=== PATIENT | male | born 1965 | race Caucasian/White ===

== ENCOUNTER 2018-04-04 10:14 | Emergency (ER) | payer BC ==
--- NOTE | 2018-04-04 12:48 | ED ---
Upper Extremity Pain - HPI Summary HPI Summary: Pt is a 53 y/o male who presents to the ED c/o RUE paresthesia. He states hes had the symptoms for 4 days and thinks he pinched a nerve. Pt reports constant discomfort of the upper portion of his RUE that radiates to his right upper back , right-sided neck, and now his right leg. Pt rates the pain as a 9/10 in severity, and isnt able to sleep due to the pain. The pain is made worse with movement. He also notes intermittent numbness and paresthesia of these regions. He denies his hand or fingers being involved. Pt denies any fever, chills, N/V, CP, or weakness. He has been taking Tylenol for his symptoms. - History of Current Complaint Chief Complaint: EDExtremityUpper Stated Complaint: GENERAL Hx Obtained From: Patient Mechanism Of Injury: Other - No injury Onset/Duration: Started Days Ago - 4, Still Present Timing: Constant - pain, Intermittent - numbness, tingling Severity Currently: Severe - 9/10 Pain Location: Arm Aggravating Factor(s): Movement Alleviating Factor(s): Nothing Associated Signs & Symptoms: Positive: Numbness/Tingling, Back Pain, Neck Pain. Negative: Weakness, Nausea, Vomiting - Allergies/Home Medications Allergies/Adverse Reactions: Allergies Allergy/AdvReac Type Severity Reaction Status Date / Time No Known Allergies Allergy Verified 04/04/18 10:28 Home Medications: Home Medications Aspirin 81 mg CHEW TAB* [Aspirin Low Dose TAB*] 81 mg PO DAILY 04/04/18 [ History Confirmed 04/04/18] PMH/Surg Hx/FS Hx/Imm Hx Endocrine/Hematology History: Denies: Hx Diabetes, Hx Thyroid Disease Cardiovascular History: Reports: Hx Angina Denies: Hx Hypertension, Hx Pacemaker/ICD Respiratory History: Denies: Hx Asthma, Hx Chronic Obstructive Pulmonary Disease (COPD) GI History: Denies: Hx Ulcer History: Denies: Hx Renal Disease Sensory History: Denies: Hx Hearing Aid Neurological History: Reports: Hx Migraine Psychiatric History: Reports: Hx Panic Disorder - SINCE THESE MIGRAINES STARTED Infectious Disease History: No Infectious Disease History: Denies: Hx Clostridium Difficile, Hx Hepatitis, Hx Human Immunodeficiency Virus (HIV), Hx of Known/Suspected MRSA, Hx Shingles, Hx Tuberculosis, Traveled Outside the [place] in Last 30 Days - Family History Known Family History: Positive: Cardiac Disease - CAD - Social History Alcohol Use: Rare Hx Substance Use: No Substance Use Type: Reports: None Hx Tobacco Use: Yes Smoking Status (MU): Former Smoker Type: Cigarettes Have You Smoked in the Last Year: No Review of Systems Negative: Fever, Chills Negative: Chest Pain Negative: Vomiting, Nausea Positive: Paresthesia, Numbness. Negative: Weakness All Other Systems Reviewed And Are Negative: Yes Physical Exam - Summary Physical Exam Summary: GENERAL: Patient is a well-developed and nourished M who is lying comfortable in the stretcher. Patient is not in any acute respiratory distress. HEAD AND FACE: Normocephalic EYES: PERRLA, EOMI x 2. EARS: Hearing grossly intact. MOUTH: Oropharynx within normal limits. NECK: Supple, trachea is midline, no adenopathy, no JVD, no carotid bruit. CHEST: Symmetric, no tenderness at palpation LUNGS: Clear to auscultation bilaterally. No wheezing or crackles. CVS: Regular rate and rhythm, S1 and S2 present, no murmurs or gallops appreciated. ABDOMEN: Soft, non-tender. Bowel sounds are normal. No abdominal abnormal pulsations. EXTREMITIES: Full ROM in all major joints, no edema, no cyanosis or clubbing. 5/ 5 motor function in BUE. NEURO: Alert and oriented x 3. No acute neurological deficits. Speech is normal and follows commands. Sensation intact BUE. SKIN: Dry and warm Triage Information Reviewed: Yes Vital Signs On Initial Exam: Initial Vitals Temp Pulse Resp BP Pulse Ox 99.4 F 93 20 102/83 98 04/04/18 10:25 04/04/18 10:25 04/04/18 10:25 04/04/18 10:25 04/04/18 10:25 Vital Signs Reviewed: Yes Diagnostics - Vital Signs Vital Signs Temp Pulse Resp BP Pulse Ox 04/04/18 10:25 99.4 F 93 20 102/83 98 - Laboratory Lab Statement: Any lab studies that have been ordered have been reviewed, and results considered in the medical decision making process. - Radiology Cervical Spine XR Radiology Interpretation Completed By: Radiologist Summary of Radiographic Findings: 1. OSTEOPENIA. 2. OSTEOARTHRITIS. 3. MILD DEGENERATIVE DISC DISEASE. ED physician reviewed radiology report. Course/Dx - Course Course Of Treatment: Pt is a 53 y/o male who presents to the ED c/o RUE paresthesia, numbness, and pain. A cervical spine XR was negative for acute diagnoses. Workup was unremarkable. Pt will be discharged with a final dx of cervical radiculopathy. I discussed results with patient and he reports feeling better. He is hemodynamically stable and safe for discharge. Strict return precautions given and he will otherwise follow up with his PCP. - Diagnoses Provider Diagnoses: Cervical radiculopathy Discharge - Sign-Out/Discharge Documenting (check all that apply): Patient Departure - Discharge Patient Received Moderate/Deep Sedation with Procedure: No - Discharge Plan Condition: Improved Disposition: HOME Prescriptions: Cyclobenzaprine TAB* [Flexeril 10 MG TAB*] 10 mg PO TID PRN #20 tab PRN Reason: Pain Ibuprofen TAB* [Motrin TAB* 800 MG] 800 mg PO Q6H #20 tab Patient Education Materials: Paresthesia (ED), Cervical Radiculopathy (ED) Forms: *Work Release Referrals: Poncho Martin MD [Medical Doctor] - Eldon Steiner MD [Primary Care Provider] - Additional Instructions: Follow up with your primary care physician in 1-3 days. RETURN TO THE EMERGENCY DEPARTMENT FOR CHANGING OR WORSENING SYMPTOMS. - Billing Disposition and Condition Condition: IMPROVED Disposition: Home - Attestation Statements Document Initiated by Magali: Yes Documenting Scribe: Yasmine Li Provider For Whom Magali is Documenting (Include Credential): Flores Collado MD Scribe Attestation: IYasmine, scribed for Flores Collado MD on 04/05/18 at 1817. Scribe Documentation Reviewed: Yes Provider Attestation: The documentation as recorded by the Yasmine carney accurately reflects the service I personally performed and the decisions made by me, Flores Collado MD Status of Scribe Document: Viewed
[2018-04-04] MEDS ORDERED: Diazepam TAB(*) 5 MG PO ONE (12:50)
[2018-04-04] MEDS ORDERED: Ketorolac INJ* 60 MG/2 ML VIAL IM ONE (12:50)
[2018-04-04 14:08] VITALS: BP 118/51
== END 2018-04-04 14:02 | disposition home or self-care (01) ==
LOC: ED 10:14
DX: M54.12 Radiculopathy, cervical region (principal); M47.812 Spondylosis without myelopathy or radiculopathy, cervical region; M85.88 Other specified disorders of bone density and structure, other site; Z79.82 Long term (current) use of aspirin; Z87.891 Personal history of nicotine dependence
CPT/HCPCS: 72040; 96372; 99282; A9270-GY; J1885

== ENCOUNTER 2018-04-08 08:25 | Emergency (ER) | payer BC ==
[2018-04-08 11:39] VITALS: BP 121/83
--- NOTE | 2018-04-08 12:31 | ED ---
Neck Pain - HPI Summary HPI Summary: Patient is a 53-year-old male who presents emergency department for worsening neck and right arm pain. Patient associated the ER several days ago for similar symptoms. At that time he had an x-ray which showed degenerative changes. Patient was prescribed Flexeril and ibuprofen which mildly helped. Patient states pain has increased and he is having paresthesias to his right upper arm. Denies weakness. Patient states symptoms have been going on altogether about 2 weeks. She denies initial injury. 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 Symptoms are mild in severity. Movement makes symptoms worse. Nothing makes symptoms better. - History of Current Complaint Chief Complaint: EDExtremityUpper Stated Complaint: ARM PAIN,SHOULDER PAIN Time Seen by Provider: 04/08/18 08:38 Hx Obtained From: Patient Pain Intensity: 2 Pain Scale Used: 0-10 Numeric - Allergies/Home Medications Allergies/Adverse Reactions: Allergies Allergy/AdvReac Type Severity Reaction Status Date / Time No Known Allergies Allergy Verified 04/04/18 10:28 PMH/Surg Hx/FS Hx/Imm Hx Previously Healthy: Yes Endocrine/Hematology History: Denies: Hx Diabetes, Hx Thyroid Disease Cardiovascular History: Reports: Hx Angina Denies: Hx Hypertension, Hx Pacemaker/ICD Respiratory History: Denies: Hx Asthma, Hx Chronic Obstructive Pulmonary Disease (COPD) GI History: Denies: Hx Ulcer History: Denies: Hx Renal Disease Sensory History: Denies: Hx Hearing Aid Neurological History: Reports: Hx Migraine Psychiatric History: Reports: Hx Panic Disorder - SINCE THESE MIGRAINES STARTED Infectious Disease History: No Infectious Disease History: Denies: Hx Clostridium Difficile, Hx Hepatitis, Hx Human Immunodeficiency Virus (HIV), Hx of Known/Suspected MRSA, Hx Shingles, Hx Tuberculosis, Traveled Outside the [place] in Last 30 Days - Family History Known Family History: Positive: Cardiac Disease - CAD - Social History Occupation: Employed Full-time Lives: With Family Alcohol Use: Rare Hx Substance Use: No Substance Use Type: Reports: None Hx Tobacco Use: Yes Smoking Status (MU): Former Smoker Type: Cigarettes Have You Smoked in the Last Year: No Review of Systems Constitutional: Negative Negative: Fever, Chills Cardiovascular: Negative Respiratory: Negative Positive: Other - neck pain and right upper arm pain. Skin: Negative Positive: Paresthesia - right upper arm pain. Negative: Numbness All Other Systems Reviewed And Are Negative: Yes Physical Exam Triage Information Reviewed: Yes Vital Signs On Initial Exam: Initial Vitals Temp Pulse Resp BP Pulse Ox 96.9 F 81 16 148/97 99 04/08/18 08:28 04/08/18 08:28 04/08/18 08:28 04/08/18 08:28 04/08/18 08:28 Vital Signs Reviewed: Yes Appearance: Positive: Well-Appearing - Pt. sitting on side of bed in NAD. Skin: Positive: Warm, Dry Head/Face: Positive: Normal Head/Face Inspection Eyes: Positive: Normal, EOMI Neck: Positive: Supple, Other: - No midline tenderness. Pain over right trapezius muscle. Musculoskeletal: Positive: Other - 5/5 strength in bilateral UEs. Mild decrease sensation to right upper arm. Normal radial pulses to UEs. Neurological: Positive: Normal, Alert, Oriented to Person Place, Time Psychiatric: Positive: Affect/Mood Appropriate Diagnostics - Vital Signs Vital Signs Temp Pulse Resp BP Pulse Ox 04/08/18 10:47 98 F 78 18 121/83 96 04/08/18 08:28 96.9 F 81 16 148/97 99 - Laboratory Lab Statement: Any lab studies that have been ordered have been reviewed, and results considered in the medical decision making process. Neck Course/Dx - Course Course Of Treatment: Pt. presenting for worsening neck and arm pain as well as tingling in right upper arm. He is afebrile. No UE weakness on exam. Given worsening sxs ct neck obtained for further evaluation. CT cerival spine per radiology: IMPRESSION: MILD TO MODERATE CERVICAL SPONDYLOSIS. IF THE PATIENT'S SYMPTOMS PERSIST. CONSIDER FOLLOW-UP MR IMAGING. Will put pt. on a course of prednisone and a few days of pain medication. DRY ROLLER reviewed and no red flags noted. Pt. to call PCP on Tuesday for a close f.u apt. May benefit from PT. Work excuse given. To return to ER if sxs change or worsen. - Diagnoses Differential Dx/HQI/PQRI: Positive: Arthritis, Sprain, Strain Provider Diagnoses: Cervical radiculopathy Discharge - Sign-Out/Discharge Documenting (check all that apply): Patient Departure Patient Received Moderate/Deep Sedation with Procedure: No - Discharge Plan Condition: Good Disposition: HOME Prescriptions: Hydrocodone/Acetaminophen [Hydrocodone-Acetamin 5-325 mg] 1 each PO Q6H #12 tablet MDD 4 methylPREDNISolone [Medrol Dosepak 4 MG*] 0 mg PO .SEE NICOLE INSTRUCTION #1 tab Patient Education Materials: Cervical Disc Herniation (ED), Cervical Radiculopathy (ED) Forms: *Work Release Referrals: Eldon Steiner MD [Primary Care Provider] - Additional Instructions: Call your PCP Tuesday to schedule a close follow up appointment Take medication as directed Apply warm compresses to neck Avoid heavy lifting Return to ER if symptoms change or worsen - Billing Disposition and Condition Condition: GOOD Disposition: Home
== END 2018-04-08 10:47 | disposition home or self-care (01) ==
LOC: ED 08:25
DX: M54.12 Radiculopathy, cervical region (principal); Z87.891 Personal history of nicotine dependence
CPT/HCPCS: 72125; 99282

== ENCOUNTER 2018-12-12 18:16 | Emergency (ER) | payer BC ==
[2018-12-12 19:11] LABS: ABS Eosinophils 0.1 10^3/ul (0-0.6); ABS Lymphocytes 2.2 10^3/ul (1.0-4.8); ABS Monocytes 0.7 10^3/ul (0-0.8); ABS Neutrophils 4.6 10^3/ul (1.5-7.7); Eosinophil % 0.9 %; Hematocrit 48 % (42-52); Lymphocyte % 28.9 %; Mean Corpuscular HGB Conc 34 g/dL (31-36); Mean Corpuscular Hemoglobin 30 pg (27-31); Mean Corpuscular Volume 89 fL (80-94); Mean Platelet Volume 8.4 fL (7.4-10.4); Platelet Count 261 10^3/uL (150-450); Red Blood Count 5.34 10^6 /uL (4.18-5.48); Red Cell Distribution Width 14 % (10-15); White Blood Count 7.5 10^3/uL (3.5-10.8)
[2018-12-12] MEDS ORDERED: NS 0.9% 1000 ML** 2,000 ML IV SCH (19:15)
[2018-12-12 19:28] LABS: Albumin 4.6 g/dL (3.2-5.2); Albumin/Globulin Ratio 1.6 (1-3); BUN/Creatinine Ratio 16.5 (8-20); C Reactive Protein 5.19 mg/L (<8.01); EGFR African American 97.2 (>60); EGFR Non-African American 80.4 (>60); Globulin 2.8 g/dL (2-4); Potassium 4.1 mmol/L (3.5-5.0); Total Bilirubin 0.6 mg/dL (0.2-1.0); Total Protein 7.4 g/dL (6.4-8.9)
[2018-12-12 20:08] LABS: INR 1.1 (0.82-1.09)
[2018-12-12 20:18] LABS: Magnesium 1.9 mg/dL (1.9-2.7)
[2018-12-12] MEDS ORDERED: NS 0.9% 1000 ML** 1,000 ML IV ONE ×2 (20:25→21:38)
--- NOTE | 2018-12-12 21:25 | ED ---
Complex/Multi-Sys Presentation - HPI Summary HPI Summary: Patient is a 53 y/o M presenting to [facility] with complaints of N/V/D, abdominal pain and fatigue. Sx onset around seven days ago, 12/05/18 and have been present daily after having eaten [place] food. Pt's was initially ill, but she is now without sxs, and the pt has continued with the N,V,D. The patient had onset of right-sided abdominal pain today, 12/12/18. Pt also notes bilat lower lateral rib pain which he attributes to muscle strain after coughing. Patient had been evaluated at [facility] urgent care and was sent to ED for further workup. He was noted to be orthostatic at [facility] with pulse increasing 30 points with standing, and pt was lightheaded at the time. He additionally notes that he has had a chronic dry cough for the past two months and that he has lost around 61 lbs with little effort over the past 6-8 months. He denies fever. Patient had reported that he felt dehydrated as well. He is on 81 mg ASA daily. Pt has no hemetemesis, melena, hemoptysis. Dr. Steiner is PCP , he states that he has not been evaluated by Dr. Steiner "in a while". Allergies to medications and home medications are reviewed. FMHx of cardiac disease, diabetes, breast cancer is noted. Vitals are 99.1 F, pulse 81, BP 107/ 75, o2 96. On triage, pain is rated 8/10, nothing is noted to aggravate/ alleviate Sx. Allergies Allergy/AdvReac Type Severity Reaction Status Date / Time No Known Allergies Allergy Verified 12/12/18 20:28 - History Of Current Complaint Chief Complaint: EDNauseaVomitDiarrh Time Seen by Provider: 12/12/18 19:11 Hx Obtained From: Patient, Other: - Amber Downing NP at [facility] Onset/Duration: Lasting Hours - abdominal pain, Lasting Days - N/V/D, Still Present Timing: Constant, Hours - abdominal pain, Days - N/V/D Severity Currently: Severe Severity Initially: Moderate Location: Pain At: - abdomen Character: Dull Aggravating Factor(s): nothing Alleviating Factor(s): nothing Associated Signs And Symptoms: Positive: Cough, Nausea, Vomiting, Diarrhea, Abdominal Pain, Other - positive - fatigue, weight loss - Allergies/Home Medications Allergies/Adverse Reactions: Allergies Allergy/AdvReac Type Severity Reaction Status Date / Time No Known Allergies Allergy Verified 12/12/18 20:28 PMH/Surg Hx/FS Hx/Imm Hx Previously Healthy: No Endocrine/Hematology History: Denies: Hx Diabetes, Hx Thyroid Disease Cardiovascular History: Reports: Hx Angina Denies: Hx Hypertension, Hx Pacemaker/ICD Respiratory History: Denies: Hx Asthma, Hx Chronic Obstructive Pulmonary Disease (COPD) GI History: Denies: Hx Ulcer History: Denies: Hx Renal Disease Sensory History: Denies: Hx Hearing Aid Neurological History: Reports: Hx Migraine Psychiatric History: Reports: Hx Panic Disorder - Immunization History Date of Tetanus Vaccine: unk Date of Influenza Vaccine: none Infectious Disease History: No Infectious Disease History: Denies: Hx Clostridium Difficile, Hx Hepatitis, Hx Human Immunodeficiency Virus (HIV), Hx of Known/Suspected MRSA, Hx Shingles, Hx Tuberculosis, Traveled Outside the [place] in Last 30 Days - Family History Known Family History: Positive: Cardiac Disease - Social History Lives: With Family Alcohol Use: Rare Hx Substance Use: No Substance Use Type: Reports: None Hx Tobacco Use: Yes Smoking Status (MU): Former Smoker Type: Cigarettes Have You Smoked in the Last Year: No Review of Systems Constitutional: Other - weight loss Positive: Fatigue Cardiovascular: Negative Positive: Cough Positive: Abdominal Pain, Vomiting, Diarrhea, Nausea Positive: no symptoms reported Musculoskeletal: Negative Skin: Negative Neurological: Negative Psychological: Normal All Other Systems Reviewed And Are Negative: Yes Physical Exam - Summary Physical Exam Summary: Appearance: Ill-appearing, minimal pain distress, well-nourished Skin: Warm, color reflects adequate perfusion, dry Head: Normal Head/Face inspection, atraumatic Eyes: Conjunctiva clear ENT: Normal inspection Neck: Supple, no nodes, no JVD Respiratory: Lungs clear, normal breath sounds, no respiratory distress Cardio: RRR, No murmur, pulses normal, brisk capillary refill Abdomen: Soft, diffusely tender, no guarding, no rebound, no masses, no distention Bowel sounds: Present Rectal Exam: Prostate is smooth and normal, not enlarged, no stool in vault. Mucus was sent for testing. No masses noted. Nurse's aide Eliseo chaperoned. Musculoskeletal: Strength Intact/ROM intact, no calf tenderness, no edema. Psychological: Normal Neuro: Alert, muscle tone normal, no focal deficit Triage Information Reviewed: Yes Vital Signs On Initial Exam: Initial Vitals Temp Pulse Resp BP Pulse Ox 99.1 F 81 17 107/75 96 12/12/18 18:50 12/12/18 18:50 12/12/18 18:50 12/12/18 18:50 12/12/18 18:50 Vital Signs Reviewed: Yes Procedures - Sedation Patient Received Moderate/Deep Sedation with Procedure: No Diagnostics - Vital Signs Vital Signs Temp Pulse Resp BP Pulse Ox 12/12/18 18:50 99.1 F 81 17 107/75 96 - Laboratory Lab Results: Lab Results 12/12/18 12/12/18 12/12/18 Range/Units 19:04 19:04 19:04 WBC 7.5 (3.5-10.8) 10^3/uL RBC 5.34 (4.18-5.48) 10^6 /uL Hgb 16.0 (14.0-18.0) g/dL Hct 48 (42-52) % MCV 89 (80-94) fL MCH 30 (27-31) pg MCHC 34 (31-36) g/dL RDW 14 (10-15) % Plt Count 261 (150-450) 10^3/uL MPV 8.4 (7.4-10.4) fL Neut % (Auto) 60.8 % Lymph % (Auto) 28.9 % [place] % (Auto) 8.8 % Eos % (Auto) 0.9 % Baso % (Auto) 0.6 % Absolute Neuts (auto) 4.6 (1.5-7.7) 10^3/ul Absolute Lymphs (auto) 2.2 (1.0-4.8) 10^3/ul Absolute Monos (auto) 0.7 (0-0.8) 10^3/ul Absolute Eos (auto) 0.1 (0-0.6) 10^3/ul Absolute Basos (auto) 0.0 (0-0.2) 10^3/ul Absolute Nucleated RBC 0.0 10^3/ul Nucleated RBC % 0.0 INR (Anticoag Therapy) (0.82-1.09) Sodium 138 (135-145) mmol/L Potassium 4.1 (3.5-5.0) mmol/L Chloride 103 (101-111) mmol/L Carbon Dioxide 27 (22-32) mmol/L Anion Gap 8 (2-11) mmol/L BUN 16 (6-24) mg/dL Creatinine 0.97 (0.67-1.17) mg/dL Est GFR ( Amer) 97.2 (>60) Est GFR (Non-Af Amer) 80.4 (>60) BUN/Creatinine Ratio 16.5 (8-20) Glucose 103 H (70-100) mg/dL Lactic Acid 0.8 (0.5-2.0) mmol/L Calcium 10.0 (8.6-10.3) mg/dL Magnesium (1.9-2.7) mg/dL Total Bilirubin 0.60 (0.2-1.0) mg/dL AST 16 (13-39) U/L ALT 14 (7-52) U/L Alkaline Phosphatase 75 (34-104) U/L Troponin I (<0.04) ng/mL C-Reactive Protein 5.19 (<8.01) mg/L Total Protein 7.4 (6.4-8.9) g/dL Albumin 4.6 (3.2-5.2) g/dL Globulin 2.8 (2-4) g/dL Albumin/Globulin Ratio 1.6 (1-3) Amylase (29-103) U/L Lipase 17 (11.0-82.0) U/L 12/12/18 12/12/18 Range/Units 19:54 19:54 WBC (3.5-10.8) 10^3/uL RBC (4.18-5.48) 10^6 /uL Hgb (14.0-18.0) g/dL Hct (42-52) % MCV (80-94) fL MCH (27-31) pg MCHC (31-36) g/dL RDW (10-15) % Plt Count (150-450) 10^3/uL MPV (7.4-10.4) fL Neut % (Auto) % Lymph % (Auto) % [place] % (Auto) % Eos % (Auto) % Baso % (Auto) % Absolute Neuts (auto) (1.5-7.7) 10^3/ul Absolute Lymphs (auto) (1.0-4.8) 10^3/ul Absolute Monos (auto) (0-0.8) 10^3/ul Absolute Eos (auto) (0-0.6) 10^3/ul Absolute Basos (auto) (0-0.2) 10^3/ul Absolute Nucleated RBC 10^3/ul Nucleated RBC % INR (Anticoag Therapy) 1.10 H (0.82-1.09) Sodium (135-145) mmol/L Potassium (3.5-5.0) mmol/L Chloride (101-111) mmol/L Carbon Dioxide (22-32) mmol/L Anion Gap (2-11) mmol/L BUN (6-24) mg/dL Creatinine (0.67-1.17) mg/dL Est GFR ( Amer) (>60) Est GFR (Non-Af Amer) (>60) BUN/Creatinine Ratio (8-20) Glucose (70-100) mg/dL Lactic Acid (0.5-2.0) mmol/L Calcium (8.6-10.3) mg/dL Magnesium 1.9 (1.9-2.7) mg/dL Total Bilirubin (0.2-1.0) mg/dL AST (13-39) U/L ALT (7-52) U/L Alkaline Phosphatase (34-104) U/L Troponin I 0.00 (<0.04) ng/mL C-Reactive Protein (<8.01) mg/L Total Protein (6.4-8.9) g/dL Albumin (3.2-5.2) g/dL Globulin (2-4) g/dL Albumin/Globulin Ratio (1-3) Amylase 24 L (29-103) U/L Lipase (11.0-82.0) U/L Result Diagrams: 12/12/18 19:04 12/12/18 19:04 Lab Statement: Any lab studies that have been ordered have been reviewed, and results considered in the medical decision making process. - Radiology CXR Radiology Interpretation Completed By: Radiologist Summary of Radiographic Findings: IMPRESSION: NO ACTIVE CARDIOPULMONARY DISEASE. THIS REPORT WAS REVIEWED BY DR. LINDSEY. - EKG 2008 Cardiac Rate: NL - RATE OF 64 BPM EKG Rhythm: Sinus Rhythm ST Segment: Non-Specific Ectopy: None EKG Comparison: No Significant Change - c/w 01/28/16 Summary of EKG Findings: SR, nl AVIVCT, nl QTc, no acute changes, no change c/w 01/28/16. Re-Evaluation - Re-Evaluation First Eval Re-Evaluation Time: 21:35 Change: Unchanged Comment: In discussing pt's weight loss, it was decided in shared decision making, that further testing would be ordered. Pt and agree to having CT with oral and IV contrast. Complex Multi-Symp Course/Dx Course Of Treatment: Patient is a 53 y/o M presenting to [facility] with complaints of N/V/D, abdominal pain and fatigue. Sx onset around seven days ago, 12/05/18 and have been present daily after having eaten at a [place] restaurant. The patient had onset of right-sided abdominal pain today, 12/12/18. Patient had been evaluated at urgent care and was found to be orthostatic and symptomatic with dizziness, and sent to ED for further workup. Abdomen: Soft, diffusely tender, no guarding, no rebound, no masses, no distention. Bowel sounds: Present. Rectal Exam: Prostate is smooth and normal, not enlarged, no stool in vault. Mucus was sent for testing. No masses noted. Bloodwork was obtained and WNL with exception of INR 1.1, glucose 108, amylase 24. UA showed 1+ blood and trace RBC. Stool occult blood was negative. Bloodwork was obtained and WNL with exception of INR 1.1, glucose 108, amylase 24. UA showed 1+ blood and trace RBC. Stool occult blood was negative. During ED course, patient received fluids and Zofran 4 mg IV. Patient is signed out to Dr. Bowen pending results of CT ABD/PEL. - Diagnoses Provider Diagnoses: Vomiting, Diarrhea, Abdominal pain, Orthostasis Discharge ED - Sign-Out/Discharge Documenting (check all that apply): Sign-Out Patient Signing out patient TO: Veronica Bowen - 22:00 12/12/18 - Discharge Plan Condition: Good Disposition: HOME Referrals: Eldon Steiner MD [Primary Care Provider] - - Billing Disposition and Condition Condition: GOOD Disposition: Home - Attestation Statements Document Initiated by Scribe: Yes Documenting Scribe: IMELDA HARDING Provider For Whom Scribe is Documenting (Include Credential): MD John VILLASEÑORibe Attestation: I, IMELDA HARDING, scribed for VERONICA BOWEN MD on 12/13/18 at 0036. Scribe Documentation Reviewed: Yes Provider Attestation: The documentation as recorded by the scribeIMELDA accurately reflects the service I personally performed and the decisions made by me, VERONICA BOWEN MD Status of Scribe Document: Viewed
[2018-12-12] MEDS ORDERED: Ondansetron INJ* 2 MG/ML VIAL IV ONE (21:41)
[2018-12-12 21:59] LABS: Hepatitis C Antibody Negative (Negative)
[2018-12-12] MEDS ORDERED: Iohexol 300* (CONTRAST) 10 ML SDV IV ONE (22:17)
--- NOTE | 2018-12-12 22:57 | ED ---
Progress - Progress Note Progress Note: Pt is a sign out from Dr. Nguyen at 22:00 on 12/12/18, pending abdomen/pelvis CT report. At 01:14, I updated pt about imaging results. Pt will be discharged home with a diagnosis of gastroenteritis. - Results/Orders Results/Orders: Abdomen/Pelvis CT IMPRESSION: No CT findings to correlate with patient's symptomatology. Re-Evaluation - Re-Evaluation First Eval Re-Evaluation Time: :14 Change: Unchanged Comment: At :14, I updated pt about imaging results. Course/Dx - Course Course Of Treatment: Pt is sign out from Dr. Nguyen at 22:00 on 12/12/18, pending abdomen/pelvis CT. Abdomen/Pelvis CT IMPRESSION: No CT findings to correlate with patient's symptomatology. At 01:14, I updated pt about imaging results. Pt will be discharged home with a diagnosis of gastroenteritis. - Diagnoses Provider Diagnoses: Vomiting, Diarrhea, Abdominal pain, Orthostasis, Gastroenteritis Discharge ED - Sign-Out/Discharge Documenting (check all that apply): Patient Departure - Discharge, Receiving Sign-Out Receiving patient FROM: Jackie Nguyen - to Dr. Bowen at change of shift - Discharge Plan Condition: Improved Disposition: HOME Prescriptions: Ondansetron ODT TAB* [Zofran 4 MG Odt TAB*] 8 mg PO Q6H PRN #12 tab.odt PRN Reason: Nausea Patient Education Materials: Gastroenteritis (ED) Forms: *Work Release Referrals: Eldon Steiner MD [Primary Care Provider] - 3 Days (if not improving) - Billing Disposition and Condition Condition: IMPROVED Disposition: Home - Attestation Statements Document Initiated by Magali: Yes Documenting Johnibe: Jenna Johnson Provider For Whom Magali is Documenting (Include Credential): Kobi Bowen MD Scriblew Attestation: Keturah, Jenna Johnson, jesused for Kobi Bowen MD on 01/03/19 at 1610. Scribe Documentation Reviewed: Yes Provider Attestation: The documentation as recorded by the Jenna carney accurately reflects the service I personally performed and the decisions made by me, Kobi Bowen MD Status of Scribe Document: Viewed
[2018-12-12 23:41] LABS: Urine Appearance Clear; Urine Bacteria Absent (Absent); Urine Bilirubin Negative (Negative); Urine Blood 1+ (Negative); Urine Color Yellow; Urine Glucose Negative (Negative); Urine Ketones Negative (Negative); Urine Nitrite Negative (Negative); Urine Protein Negative (Negative); Urine Red Blood Cell Trace(0-2/hpf) (Absent); Urine Specific Gravity 1.015 (1.010-1.030); Urine Urobilinogen Negative (Negative); Urine White Blood Cell Absent (Absent)
[2018-12-13 01:30] VITALS: BP 107/55
== END 2018-12-13 01:29 | disposition home or self-care (01) ==
LOC: ED 18:16
DX: I95.1 Orthostatic hypotension (principal); K52.9 Noninfective gastroenteritis and colitis, unspecified; R10.9 Unspecified abdominal pain; R19.7 Diarrhea, unspecified; R53.83 Other fatigue; R05 Cough; Z87.891 Personal history of nicotine dependence
CPT/HCPCS: 36415; 71045; 74177; 80053; 81003; 81015; 82150; 82272; 83605; 83690; 83735; 84484; 85025; 85610; 86140; 86803; 93005; 96361; 96374; 99284; J2405; Q9967

== ENCOUNTER 2019-02-05 04:32 | Emergency (ER) | payer BC ==
[2019-02-05 07:49] VITALS: BP 108/70
--- NOTE | 2019-02-05 08:04 | ED ---
Upper Extremity Pain - HPI Summary HPI Summary: This patient is a 54 her old male presenting to the ED with a 2 day history of right shoulder and right hip pain. Patient states he was walking to work yesterday morning around 4 AM when he slipped and fell on the ice, landing onto his right shoulder and right hip. He states his hip has been improving and he is ambulatory. Pain currently rated a 2/10 and not worse with movement. Shoulder pain rated a 5/10, worse with movement and better with rest. His symptoms worsened when he was at work this morning trying to pull things near him. He then related that pain a 10/10, stabbing and burning. He has never had an arm injury in the past. The shoulder pain radiates down the right upper arm. - History of Current Complaint Chief Complaint: EDHipPelvisInjury Stated Complaint: FALL PER PT Time Seen by Provider: 02/05/19 06:42 Hx Obtained From: Patient Onset/Duration: Started Days Ago Timing: Constant Severity Initially: Moderate Severity Currently: Moderate Pain Location: Shoulder Character: Aching Aggravating Factor(s): Movement, Lifting, Flexion, Extension Alleviating Factor(s): Rest, Ice Associated Signs & Symptoms: Negative: Swelling, Redness, Bruising - Risk Factors Non-Orthopedic Risk Factor: Negative DVT Risk Factors: Negative Septic Arthritis Risk Factor: Negative Compartment Syndrome Risk Factors: Pain - Allergies/Home Medications Allergies/Adverse Reactions: Allergies Allergy/AdvReac Type Severity Reaction Status Date / Time No Known Allergies Allergy Verified 02/05/19 04:36 PMH/Surg Hx/FS Hx/Imm Hx Previously Healthy: Yes Endocrine/Hematology History: Denies: Hx Diabetes, Hx Thyroid Disease Cardiovascular History: Reports: Hx Angina Denies: Hx Hypertension, Hx Pacemaker/ICD Respiratory History: Denies: Hx Asthma, Hx Chronic Obstructive Pulmonary Disease (COPD) GI History: Denies: Hx Ulcer History: Denies: Hx Renal Disease Sensory History: Denies: Hx Hearing Aid Neurological History: Reports: Hx Migraine Psychiatric History: Reports: Hx Panic Disorder - Immunization History Date of Tetanus Vaccine: unk Date of Influenza Vaccine: none Hx Pertussis Vaccination: No Immunizations Up to Date: Yes Infectious Disease History: No Infectious Disease History: Denies: Hx Clostridium Difficile, Hx Hepatitis, Hx Human Immunodeficiency Virus (HIV), Hx of Known/Suspected MRSA, Hx Shingles, Hx Tuberculosis, Traveled Outside the [place] in Last 30 Days - Family History Known Family History: Positive: Cardiac Disease - Social History Occupation: Employed Full-time Lives: With Family Alcohol Use: Rare Hx Substance Use: No Substance Use Type: Reports: None Hx Tobacco Use: Yes Smoking Status (MU): Former Smoker Type: Cigarettes Have You Smoked in the Last Year: No Review of Systems Negative: Fever, Chills, Fatigue, Skin Diaphoresis Negative: Shortness Of Breath, Cough Genitourinary: Negative Positive: no symptoms reported, see HPI Positive: Arthralgia - right shoulder and R hip pain. Negative: Myalgia Skin: Negative All Other Systems Reviewed And Are Negative: Yes Physical Exam Triage Information Reviewed: Yes Vital Signs On Initial Exam: Initial Vitals Temp Pulse Resp BP Pulse Ox 96.5 F 80 16 129/87 99 02/05/19 04:35 02/05/19 04:35 02/05/19 04:35 02/05/19 04:35 02/05/19 04:35 Vital Signs Reviewed: Yes Appearance: Positive: Well-Appearing, Well-Nourished Skin: Positive: Warm, Skin Color Reflects Adequate Perfusion Head/Face: Positive: Normal Head/Face Inspection Eyes: Positive: EOMI, PAYAM, Conjunctiva Clear Neck: Positive: Supple, No Lymphadenopathy Respiratory/Lung Sounds: Positive: Clear to Auscultation, Breath Sounds Present Cardiovascular: Positive: RRR, Pulses are Symmetrical in both Upper and Lower Extremities Musculoskeletal: Positive: Pain @ - right shoulder pain Neurological: Positive: Sensory/Motor Intact, Alert, Oriented to Person Place, Time Psychiatric: Positive: Normal, Affect/Mood Appropriate AVPU Assessment: Alert Procedures - Sedation Patient Received Moderate/Deep Sedation with Procedure: No Diagnostics - Vital Signs Vital Signs Temp Pulse Resp BP Pulse Ox 02/05/19 07:45 97.7 F 78 18 108/70 98 02/05/19 04:35 96.5 F 80 16 129/87 99 - Laboratory Lab Statement: Any lab studies that have been ordered have been reviewed, and results considered in the medical decision making process. Course/Dx - Course Course Of Treatment: On physical exam, patient has discomfort in the right shoulder, worse with movement better with rest. Neer test positive, negro kia positive, pt unable to abduct past 90 degrees d/t pain. No ecchympsis, swelling or signs of dislocation. Pt ambulating. Strength 5/5 in the bilateral lower ext. No pain with log roll. Flexion and extension of the lower ext without limitation. Xray of the R hip and R shoulder obtained. D/t positive special tests, R shoulder likely RTC injury, however degree and severity is undertermined. R hip without extensive injury. Xrays read as negative by myself, Britni Ward PA-C. Will call with any positive results read by radiology. Encouraged ibuprofen and ortho follow up. - Diagnoses Differential Diagnosis/HQI/PQRI: Positive: Bursitis, Strain, Sprain, Other - RTC injury, RTC tendonitis Provider Diagnoses: Right shoulder injury Discharge ED - Sign-Out/Discharge Documenting (check all that apply): Patient Departure - Discharge Plan Condition: Good Disposition: HOME Patient Education Materials: Rotator Cuff Injury (ED) Forms: *Work Release Referrals: Noe Watson MD [Medical Doctor] - Eldon Steiner MD [Primary Care Provider] - Additional Instructions: I have given you a referral for Dr. Watson, however you can see the first available orthopedist in their clinic. Ibuprofen 600mg three times daily x 5 days Ice and heat intermittently Off work x 5 days - Billing Disposition and Condition Condition: GOOD Disposition: Home
== END 2019-02-05 07:46 | disposition home or self-care (01) ==
LOC: ED 04:32
DX: S49.91XA Unspecified injury of right shoulder and upper arm, initial encounter (principal); W00.0XXA Fall on same level due to ice and snow, initial encounter; Y92.9 Unspecified place or not applicable; Z87.891 Personal history of nicotine dependence
CPT/HCPCS: 99282